=== PATIENT | male | born 1980 | race Caucasian/White ===

== ENCOUNTER 2022-03-01 03:16 | Inpatient (IN) | payer MEDICAID ==
[~2022-03-01] VITALS: Ht 190.5 cm; Wt 142.6 kg
[2022-03-01 04:08] LABS: BASOPHIL 0.2 % (0-2); EOSINOPHIL 0.1 % (0-5); HCT 50.3 % (42.0-52.0); HGB 16.9 g/dl (13.2-18.0); LYMPHOCYTE 7.5 % (15-48); MCH 29.4 pg (25.0-31.0); MCHC 33.6 g/dL (32.0-36.0); MCV 87.5 fL (78.0-100.0); MONOCYTE 4.7 % (0-12); MPV 9.9 fL (6.0-9.5); NRBC 0; PLT 280 K/uL (150-400); RBC 5.75 M/uL (4.70-6.00); RDW 12.7 % (11.5-14.0); WBC 18.4 K/uL (4.0-10.5)
[2022-03-01 04:29] LABS: ALBUMIN 3.9 g/dL (3.4-5.0); BILIRUBIN - TOTAL 1.2 mg/dL (0.2-1.0); BUN/CREAT RATIO (CALC) 10.8 RATIO; CREATININE 1.2 mg/dL (0.67-1.17); GLOBULIN (CALCULATION) 3.9 g/dL; POTASSIUM 4.2 mmol/L (3.5-5.1); TOTAL PROTEIN 7.8 g/dL (6.4-8.2)
[2022-03-01 04:57] LABS: BILIRUBIN NEGATIVE (NEGATIVE); BLOOD NEGATIVE Ery/uL (NEGATIVE); CLARITY CLEAR (CLEAR); COLOR YELLOW (YELLOW); GLUCOSE (U) NORMAL (NORMAL); LEUKOCYTES NEGATIVE Leu/uL (NEGATIVE); NITRITE NEGATIVE (NEGATIVE); PROTEIN TRACE (LOW) mg/dL (NEGATIVE); SPECIFIC GRAVITY >=1.030 (1.001-1.030)
[2022-03-01 05:10] LABS: BACTERIA TRACE; SQUAMOUS EPITHELIAL CELLS RARE; URINARY RBC RARE; URINARY WBC RARE
[2022-03-01 05:47] LABS: CORONAVIRUS 2019 SARS-COV-2 NEGATIVE (NEGATIVE); INFLUENZA A NAA NEGATIVE (NEGATIVE)
[2022-03-01 06:08] LABS: LACTIC ACID 1.9 mmol/L (0.4-1.9)
[2022-03-02 06:43] LABS: BASOPHIL 0.1 % (0-2); EOSINOPHIL 0.1 % (0-5); HCT 43.8 % (42.0-52.0); HGB 14.6 g/dl (13.2-18.0); LYMPHOCYTE 8.9 % (15-48); MCH 29.3 pg (25.0-31.0); MCHC 33.3 g/dL (32.0-36.0); MCV 87.8 fL (78.0-100.0); MONOCYTE 7.8 % (0-12); MPV 10.3 fL (6.0-9.5); NEUTROPHIL 82.7 % (41-80); NRBC 0; PLT 201 K/uL (150-400); RBC 4.99 M/uL (4.70-6.00); RDW 12.8 % (11.5-14.0)
[2022-03-02 06:44] LABS: WBC 16.3 K/uL (4.0-10.5)
[2022-03-02 06:54] LABS: CREATININE 0.89 mg/dL (0.67-1.17); POTASSIUM 3.8 mmol/L (3.5-5.1)
[2022-03-03 06:33] LABS: BASOPHIL 0.3 % (0-2); EOSINOPHIL 0.4 % (0-5); HCT 46.5 % (42.0-52.0); HGB 15.6 g/dl (13.2-18.0); LYMPHOCYTE 6.7 % (15-48); MCH 29.2 pg (25.0-31.0); MCHC 33.5 g/dL (32.0-36.0); MCV 87.1 fL (78.0-100.0); MONOCYTE 7.5 % (0-12); MPV 10.2 fL (6.0-9.5); NEUTROPHIL 84.6 % (41-80); NRBC 0; PLT 289 K/uL (150-400); RBC 5.34 M/uL (4.70-6.00); WBC 14.5 K/uL (4.0-10.5)
[2022-03-03 07:00] LABS: ALBUMIN 2.6 g/dL (3.4-5.0); BILIRUBIN - TOTAL 1.2 mg/dL (0.2-1.0); BUN/CREAT RATIO (CALC) 17.9 RATIO; CREATININE 0.84 mg/dL (0.67-1.17); GLOBULIN (CALCULATION) 4.3 g/dL; MAGNESIUM 1.8 mg/dL (1.8-2.4); PHOSPHORUS 2.8 mg/dL (2.6-4.7); POTASSIUM 3.7 mmol/L (3.5-5.1); TOTAL PROTEIN 6.9 g/dL (6.4-8.2)
[2022-03-04 06:53] LABS: BASOPHIL 0.4 % (0-2); EOSINOPHIL 2.3 % (0-5); HCT 43.6 % (42.0-52.0); HGB 14.5 g/dl (13.2-18.0); LYMPHOCYTE 12.3 % (15-48); MCH 29.1 pg (25.0-31.0); MCHC 33.3 g/dL (32.0-36.0); MCV 87.6 fL (78.0-100.0); MONOCYTE 10.2 % (0-12); MPV 9.9 fL (6.0-9.5); NEUTROPHIL 74.1 % (41-80); NRBC 0; PLT 274 K/uL (150-400); RBC 4.98 M/uL (4.70-6.00); RDW 12.9 % (11.5-14.0); WBC 11.6 K/uL (4.0-10.5)
[2022-03-04 07:25] LABS: ALBUMIN 2.3 g/dL (3.4-5.0); BILIRUBIN - TOTAL 0.9 mg/dL (0.2-1.0); BUN/CREAT RATIO (CALC) 20.5 RATIO; CREATININE 0.83 mg/dL (0.67-1.17); MAGNESIUM 1.9 mg/dL (1.8-2.4); PHOSPHORUS 3.4 mg/dL (2.6-4.7); POTASSIUM 3.7 mmol/L (3.5-5.1); TOTAL PROTEIN 6.3 g/dL (6.4-8.2)
[2022-03-05 07:05] LABS: BASOPHIL 0.5 % (0-2); EOSINOPHIL 2.9 % (0-5); HCT 44.6 % (42.0-52.0); LYMPHOCYTE 14.3 % (15-48); MCH 29.2 pg (25.0-31.0); MCHC 33.6 g/dL (32.0-36.0); MCV 86.8 fL (78.0-100.0); MONOCYTE 11.5 % (0-12); MPV 9.8 fL (6.0-9.5); NEUTROPHIL 69.7 % (41-80); NRBC 0; PLT 303 K/uL (150-400); RBC 5.14 M/uL (4.70-6.00); RDW 12.8 % (11.5-14.0); WBC 12.1 K/uL (4.0-10.5)
[2022-03-05 07:28] LABS: BUN/CREAT RATIO (CALC) 15.6 RATIO; CREATININE 0.9 mg/dL (0.67-1.17); POTASSIUM 3.6 mmol/L (3.5-5.1)
--- NOTE | 2022-03-06 10:38 | NUR ---
03/06/22 Mr. Huber lives at home with his spouse and 4 of their 9 children. He works at [employer]. He does not have a; insurance or a PCP. - Mr. Huber has a history of substance abuse. He sttes to have been using "everything". He has been sober for 2 years and attends NA meetings via [employer]. - Mr. Huber was referred to [facility] for primary care.
[2022-03-06 11:02] LABS: HGB 14.4 g/dl (13.2-18.0); MCH 29.3 pg (25.0-31.0); MCHC 33.5 g/dL (32.0-36.0); MCV 87.4 fL (78.0-100.0); MPV 9.5 fL (6.0-9.5); RBC 4.92 M/uL (4.70-6.00); RDW 12.9 % (11.5-14.0)
[2022-03-06 11:22] LABS: BUN/CREAT RATIO (CALC) 15.6 RATIO; CREATININE 0.77 mg/dL (0.67-1.17); POTASSIUM 3.6 mmol/L (3.5-5.1)
[2022-03-07 06:23] LABS: BASOPHIL 0.4 % (0-2); EOSINOPHIL 3.4 % (0-5); HCT 41.6 % (42.0-52.0); LYMPHOCYTE 12.5 % (15-48); MCH 29.4 pg (25.0-31.0); MCHC 33.7 g/dL (32.0-36.0); MCV 87.2 fL (78.0-100.0); MONOCYTE 9.4 % (0-12); MPV 9.5 fL (6.0-9.5); NEUTROPHIL 72.4 % (41-80); NRBC 0; PLT 291 K/uL (150-400); RBC 4.77 M/uL (4.70-6.00); RDW 12.8 % (11.5-14.0); WBC 12.4 K/uL (4.0-10.5)
[2022-03-07 06:49] LABS: ALBUMIN 2.3 g/dL (3.4-5.0); BILIRUBIN - TOTAL 0.6 mg/dL (0.2-1.0); BUN/CREAT RATIO (CALC) 16.1 RATIO; CREATININE 0.87 mg/dL (0.67-1.17); GLOBULIN (CALCULATION) 4.3 g/dL; PHOSPHORUS 3.9 mg/dL (2.6-4.7); POTASSIUM 3.7 mmol/L (3.5-5.1); TOTAL PROTEIN 6.6 g/dL (6.4-8.2)
[2022-03-07] MEDS ORDERED: VENTOLIN HFA IN18 GM INH (14:49)
[2022-03-07] MEDS ORDERED: NORCO 5-325 TA1 EACH PO (14:49)
[2022-03-07] MEDS ORDERED: NORVASC5 MG PO (14:49)
[2022-03-07] MEDS ORDERED: METRONIDAZOLE500 MG PO (15:00)
[2022-03-07] MEDS ORDERED: LEVAQUIN750 MG PO (15:00)
--- NOTE | 2022-03-07 16:45 | NUR ---
[address]45 [address] DRAIN WAS REMOVED WITH OUT ANY PROBLEMS. CLEAN AND DRY DRESSING WAS APPLIED TO THE SITE.
== END 2022-03-07 16:45 | disposition home or self-care (01) | DRG 339 ==
LOC: FER 03:16 → FAS 05:06 → FMS 05:46
PROVIDERS: Emergency Medicine; Internal Medicine; Nurse Practitioner Acute Care; Student in an Organized Health Care Education/Training Program; ADMIT Internal Medicine
PROC: 0WJG4ZZ Inspection of Peritoneal Cavity, Percutaneous Endoscopic Approach (ICD-10-PCS; 2022-03-01)
PROC: 0DTJ0ZZ Resection of Appendix, Open Approach (ICD-10-PCS; principal; 2022-03-01 06:00)
DX: K35.32 Acute appendicitis with perforation, localized peritonitis, and gangrene, without abscess (principal); F11.20 Opioid dependence, uncomplicated; N17.9 Acute kidney failure, unspecified; K91.89 Other postprocedural complications and disorders of digestive system; K56.7 Ileus, unspecified; I10 Essential (primary) hypertension; Z20.822 Contact with and (suspected) exposure to COVID-19; Z87.891 Personal history of nicotine dependence; K38.1 Appendicular concretions; R73.9 Hyperglycemia, unspecified; E66.9 Obesity, unspecified
CPT/HCPCS: 36415; 80048; 80053; 81001; 83036; 83605; 83690; 83735; 84100; 85025; 87040; 94010; 94640; 94664; 94760; 94762; C9113; J0500; J1100; J1170; J1644; J1885; J2250; J2405; J2543; J2704; J3010; J7030; J7120; Q9967; U0002